=== PATIENT | female | born 2000 | race Caucasian/White ===

== ENCOUNTER 2019-02-05 18:38 | Emergency (ER) | payer MEDICAID, SELFPAY ==
[2019-02-05 19:07] LABS: Bilirubin Negative (Negative); Blood, Urine Negative (Negative); Clarity Slightly Cloudy (Clear); Glucose, Urine (Dipstick) Negative (Negative); Leukocyte Trace (Negative); Nitrite Negative (Negative); Pregnancy Test - Urine (BHCG) Negative (Negative); Pregu Control Background? CLEAR/WHITE (CLR/WHITE); Pregu Control Bar Appear? YES (CONTROL BAR); Protein, Urine (Dipstick) Negative (Neg-Trace); Urobilinogen 0.2 mg/dL (0.2-1.0)
[2019-02-05] MEDS ORDERED: Ondansetron ODT 4 MG TAB ONE (19:08)
[2019-02-05 19:09] LABS: Bacteria/HPF 2+ HPF (None Seen); RBC/HPF 0-3 HPF (0-3)
[2019-02-05 19:19] LABS: #Basophils 0.1 thou/uL (0.0-0.2); #Eosinphils 0.2 thou/uL (0.0-0.7); #Lymphocytes 2.8 thou/uL (1.20-3.40); #Monocytes 0.9 thou/uL (0.11-0.59); #Neutrophils 4.1 thou/uL (1.40-6.50); %Basophils 1.3 % (0.0-1.0); %Lymphocytes 34.8 % (28.0-48.0); %Monocytes 10.8 % (0.0-4.0); %Neutrophils 51.1 % (31.0-61.0); Hemoglobin 12.9 g/dL (12.0-16.0); Mean Corpuscular HGB CONC 33.3 g/dL (32.0-36.0); Mean Corpuscular Hemoglobin 25.6 pg (25.0-35.0); Mean Corpuscular Volume 77.1 fL (78.0-98.0); Mean Platelet Volume 6.3 fL (7.4-10.4); Platelet Count 317 thou/uL (130-400); RBC Distribution Width 13.6 % (11.5-14.5); Red Blood Cell (RBC) Count 5.02 mill/uL (4.00-5.20); White Blood Cell (WBC) Count 8.1 thou/uL (4.8-10.8)
[2019-02-05 19:35] LABS: ALT (SGPT) 30 U/L (8-55); AST (SGOT) 16 U/L (5-30); Albumin 4.5 g/dL (3.5-5.0); Alkaline Phosphatase 50 U/L (40-150); Anion Gap 14 mmol/L (10-20); BUN (Urea Nitrogen) 10 mg/dL (8.4-21.0); Bilirubin, Total 0.2 mg/dL (0.2-1.2); Calc. Creatinine Clearance 0 mL/min (70-130); Calcium 9.5 mg/dL (7.8-10.44); Carbon Dioxide 22 mmol/L (22-29); Chloride 110 mmol/L (98-107); Estimated GFR-MDRD Greater than 90; Globulin 2.8 g/dL (2.4-3.5); Glucose 145 mg/dL (70-105); Lipase 22 U/L (8-78); Potassium 3.8 mmol/L (3.5-5.1); Protein, Total 7.3 g/dL (6.0-8.3); Sodium 142 mmol/L (136-145)
--- NOTE | 2019-02-05 20:18 | ULT ---
EXAM: US Gallbladder RUQ CLINICAL HISTORY: Abdominal pain. COMPARISON: None. FINDINGS: Pancreas: Limited evaluation due to overlying bowel gas. Liver:Heterogeneous echotexture which may be due to hepatic steatosis or hepatocellular disease. Limi ally evaluation for hepatic masses and intrahepatic biliary dilatation. Gallbladder: No sonographic evidence of cholelithiasis, gallbladder wall thickening or pericholecysti c fluid. Gallbladder is contracted due to nonfasting date, limiting evaluation. Brannon's sign:Negative Bile ducts: Common bile diameter is 0.3 cm Right kidney: No hydronephrosis Right kidney measuring 4.3 x 11.6 x 5.1 cm in length. IMPRESSION: 1. Heterogeneous hepatic parenchymal echotexture. If there is concern for hepatic masses, nonemergent liver mass protocol CT can performed. 2. Contracted gallbladder due to nonfasting state. Limited evaluation.
== END 2019-02-05 20:38 | disposition home or self-care (01) ==
LOC: SCSER 18:38
DX: K76.0 Fatty (change of) liver, not elsewhere classified (principal); N39.0 Urinary tract infection, site not specified
CPT/HCPCS: 36415; 76705; 80053; 81003; 81015; 81025; 83690; 84443; 85025; Q0162